=== PATIENT | male | born 1975 | race Two or more races ===

== ENCOUNTER 2025-01-29 18:02 | Emergency (ER) | payer MEDICAID, OTHER ==
[~2025-01-29] VITALS: Ht 162.6 cm; Wt 74.0 kg
[2025-01-29 18:03] VITALS: BP 146/98; TEMP 97.8
[2025-01-29 18:21] VITALS: PULSE 87; RESP 16; O2SAT 97
[2025-01-29] MEDS ORDERED: ACET500T58 PO (18:51)
[2025-01-29] MEDS ORDERED: CYCL-837 PO (18:51)
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
--- NOTE | 2025-01-29 20:52 | DVH ---
EXAM: CT CERVICAL WITHOUT CONTRAST INDICATION: neck pain EXAM DATE: 01/29/2025 08:11 PM COMPARISON: None TECHNIQUE: Multiple axial CT images of the cervical spine were obtained using bone algorithm. Axial a nd coronal reformatting was done. Bone and soft tissue windows were reviewed. Radiation Dose Information: CT Dose: CTDI volume is 21.99 mGy. Dose-length product is 539.78 mGy*cm FINDINGS: The cervical alignment is intact. No acute cervical spine fracture is identified. The vertebral body heights are intact. No suspicious osseous lesions are identified. Multilevel mild degenerative changes of the cervical spine. Slight H-shaped deformity of C4 C7 which may be seen with sickle cell disease in the right clinical. There is no prevertebral soft tissue swelling. IMPRESSION: No evidence of acute cervical spine fracture or traumatic malalignment. All CT scans at this medical facility are performed using dose modulation techniques as appropriate t o a performed exam including the following: Automated exposure control was utilized; adjustment of th e MA and/or KV according to patient size; and use of iterative reconstruction technique.
== END 2025-01-29 21:55 | disposition home or self-care (01) ==
LOC: ER 18:02
DX: S16.1XXA Strain of muscle, fascia and tendon at neck level, initial encounter (principal); E78.5 Hyperlipidemia, unspecified; M25.512 Pain in left shoulder; V43.52XA Car driver injured in collision with other type car in traffic accident, initial encounter; Y93.I9 Activity, other involving external motion; Y92.488 Other paved roadways as the place of occurrence of the external cause; Y99.8 Other external cause status
CPT/HCPCS: 72125